=== PATIENT | male | born 1950 | race Caucasian/White ===

== ENCOUNTER 2019-11-23 11:56 | Emergency (ER) | payer MEDICARE, OTHER ==
[~2019-11-23 11:56] MED LIST: Iopamidol 370 76% 100 ML VIAL ONE
[2019-11-23 12:57] LABS: #Basophils 0.1 thou/uL (0.0-0.2); #Eosinphils 0.1 thou/uL (0.0-0.7); #Lymphocytes 1.9 thou/uL (1.20-3.40); #Monocytes 0.7 thou/uL (0.11-0.59); #Neutrophils 4.1 thou/uL (1.40-6.50); %Basophils 0.9 % (0.0-1.0); %Eosinophils 2.2 % (0.0-10.0); %Lymphocytes 27.8 % (21.0-51.0); %Monocytes 10.1 % (0.0-10.0); Hemoglobin 14.3 g/dL (14.0-18.0); Mean Corpuscular HGB CONC 31.4 g/dL (32.0-36.0); Mean Corpuscular Hemoglobin 29.3 pg (27.0-31.0); Mean Corpuscular Volume 93.5 fL (78.0-98.0); Mean Platelet Volume 9.1 fL (7.4-10.4); Platelet Count 221 thou/uL (130-400); RBC Distribution Width 12.8 % (11.5-14.5); Red Blood Cell (RBC) Count 4.89 mill/uL (4.70-6.10)
[2019-11-23 13:02] LABS: ALT (SGPT) 16 U/L (8-55); AST (SGOT) 18 U/L (5-34); Albumin 4.1 g/dL (3.4-4.8); Alkaline Phosphatase 51 U/L (40-110); Anion Gap 13 mmol/L (10-20); BUN (Urea Nitrogen) 18 mg/dL (8.4-25.7); Calc. Creatinine Clearance 0 mL/min (70-130); Calcium 9.6 mg/dL (7.8-10.44); Carbon Dioxide 27 mmol/L (23-31); Chloride 103 mmol/L (98-107); Estimated GFR-MDRD 66; Globulin 2.7 g/dL (2.4-3.5); Glucose 106 mg/dL (80-115); Potassium 3.9 mmol/L (3.5-5.1); Protein, Total 6.8 g/dL (5.8-8.1); Sodium 139 mmol/L (136-145)
[2019-11-23 13:52] LABS: Bilirubin Negative (Negative); Blood, Urine Trace (Negative); Glucose, Urine (Dipstick) Negative (Negative); Ketone, Urine Negative (Negative); Leukocyte Negative (Negative); Nitrite Negative (Negative); Protein, Urine (Dipstick) Trace mg/dL (Neg-Trace); Specific Gravity, Urine 1.015 (1.005-1.030); Urobilinogen 0.2 mg/dL (Less than 2)
[2019-11-23 14:02] LABS: Clarity Hazy (Clear)
[2019-11-23 14:03] LABS: Bacteria/HPF Rare-Few HPF (None Seen); RBC/HPF 0-3 HPF (0-3); Squamous Epithelial 0-3 HPF (0-3)
--- NOTE | 2019-11-23 14:58 | CT ---
CT ABDOMEN AND PELVIS WITH AND WITHOUT CONTRAST: History: Left sided flank pain. FINDINGS: There are atelectatic dependent changes in the lung bases. No free air or free fluid is seen in the a bdomen or pelvis. No lymphadenopathy is identified. No calcified gallstones are seen. The liver, sple en, pancreas, and adrenal glands are normal. There is a 3 mm calculus in the right kidney. No calculi are seen in the ureters, left kidney or the urinary bladder. No hydroureteronephrosis is seen on either side. There is a 2.4 cm cyst arising from the left kidney. A small hiatal hernia is present. The small bowel loops are not abnormally dilated. A normal appearin g appendix is seen. There are vascular calcifications without evidence of aneurysmal dilatation of the abdominal aorta. T here are degenerative changes of the spine. The prostate is enlarged. IMPRESSION: 1. Nonobstructing 3 mm right renal calculus. 2. Prostatic enlargement. 3. Small hiatal hernia. POS: OFF
== END 2019-11-23 15:30 | disposition home or self-care (01) ==
LOC: MADERS 11:56
DX: N10 Acute pyelonephritis (principal); R53.1 Weakness; E11.9 Type 2 diabetes mellitus without complications; Z86.73 Personal history of transient ischemic attack (TIA), and cerebral infarction without residual deficits; Z79.84 Long term (current) use of oral hypoglycemic drugs; Z79.899 Other long term (current) drug therapy
CPT/HCPCS: 74178; 80053; 81003; 81015; 83605; 85025; Q9967